=== PATIENT | male | born 1970 | race Caucasian/White ===

== ENCOUNTER → 2023-03-25 | Outpatient (CLI) | payer OTHER ==
[2023-03-25 21:17] LABS: BUN/Creat Ratio 24.75 Ratio (12.00-20.00); Blood Urea Nitrogen 19.8 mg/dL (9.0-27.0); Calcium 9.8 mg/dL (8.7-10.3); Chloride 104 mmol/L (96-109); Glucose 172 mg/dL (70-110); Potassium 4.6 mmol/L (3.5-5.5); Sodium 140 mmol/L (135-145)
[2023-03-25 21:32] LABS: Basophils # (A) 0.04 X 10*3/uL (0.00-0.10); Basophils % (A) 0.7 %; Eosinophils # (A) 0.26 X 10*3/uL (0.04-0.35); Eosinophils % (A) 4.6 %; HCT 44.5 % (39.6-50.0); HGB 14.7 d/dL (12.0-15.0); Lymphocytes % (A) 33.6 %; MCH 28.7 pg (27.0-32.0); MCV 86.9 FL (80.0-97.0); Mean Platelet Volume 11.4 FL (9.5-12.2); Monocytes # (A) 0.52 X 10*3/uL (0.20-1.00); Monocytes % (A) 9.2 %; NRBC Per 100 WBC 0 X 10*3/uL (0.00-0.01); Neutrophils # (A) 2.91 X 10*3/uL (1.80-7.70); Neutrophils % (A) 51.5 %; Platelet Count 178 X 10*3/uL (140-440); RBC 5.12 X 10*6/uL (4.40-5.60); RDW 12.4 % (11.5-14.5); WBC 5.65 X 10*3/uL (4.50-10.00)
[2023-03-25 22:47] LABS: Appearance,Urine Clear (Clear); Bilirubin,Urine Negative (Negative); Blood,Urine Negative (Negative); Color,Urine Yellow (Yellow); Ketones,Urine Negative (Negative); Nitrite,Urine Negative (Negative); PH, Urine 5.5; Specific Gravity,Urine 1.029 (1.001-1.030); Urobilinogen,Urine 0.2 E.U./DL
== END | disposition home or self-care (01) ==
LOC: LABPAT 14:19
PROVIDERS: ATTEND Urology
DX: Z01.812 Encounter for preprocedural laboratory examination (principal); N20.0 Calculus of kidney
CPT/HCPCS: 80048; 81003; 85025

== ENCOUNTER 2023-04-07 07:37 | Day surgery (SDC) | payer OTHER ==
--- NOTE | 2023-04-06 18:09 | P.GSHP ---
History of Present Illness H&P Date: 04/06/23 52 yo male with a history of stones. He has left flank pain with a 3-4 mm left renal stone. We discussed treatment options and indications for treatment. The stone cant be seen on a kub therefore he comes for a left ureteroscopy and laser lithotripsy. The risks and complications have been explained understood and accepted. He understands that he may not get relief of the pain with removal of the stone. - Constitutional Constitutional: Denies chills, Denies fever - EENT Eyes: denies blurred vision, denies pain Ears, nose, mouth and throat: Denies headache, Denies sore throat - Cardiovascular Cardiovascular: Denies chest pain, Denies shortness of breath - Respiratory Respiratory: Denies cough, Denies 7 - Gastrointestinal Gastrointestinal: Denies abdominal pain, Denies diarrhea, Denies nausea, Denies vomiting - Genitourinary (Female) Genitourinary: Denies dysuria, Denies hematuria - Genitourinary (Male) Genitourinary: Denies dysuria, Denies hematuria - Musculoskeletal Musculoskeletal: Denies myalgias - Integumentary Integumentary: Denies pruritus, Denies rash - Neurological Neurological: Denies numbness, Denies weakness - Psychiatric Psychiatric: Denies anxiety, Denies depression - Endocrine Endocrine: Denies fatigue, Denies weight change Past Medical History Past Medical History: COPD, Diabetes Mellitus, GERD/Reflux, Hyperlipidemia, Liver Disease Additional Past Medical History / Comment(s): CT scan showed nodules on lung, chronic bronchitis -light copd, fatty liver, kidney stones. rash to rt shoulder from work bag. general aches and pains History of Any Multi-Drug Resistant Organisms: None Reported Additional Past Surgical History / Comment(s): left scapula surgery. wisdom teeth. egd Past Anesthesia/Blood Transfusion Reactions: No Reported Reaction Additional Past Anesthesia/Blood Transfusion Reaction / Comment(s): no blood tranfusions Smoking Status: Former smoker - Past Family History Mother Family Medical History: GERD/Reflux Additional Family Medical History / Comment(s): cirrohsis of liver non alcohol. esophageal varices Medications and Allergies Home Medications Medication Instructions Recorded Confirmed Type Albuterol Sulfate [Ventolin HFA] 1 puff INHALATION Q4HR PRN 04/05/23 04/05/23 History Famotidine 40 mg PO DAILY 04/05/23 04/05/23 History Ibuprofen [Motrin] 800 mg PO Q8H PRN 04/05/23 04/05/23 History Magnesium Oxide [Magnesium] 500 mg PO DAILY 04/05/23 04/05/23 History Rosuvastatin Calcium 5 mg PO DAILY 04/05/23 04/05/23 History metFORMIN HCL 500 mg PO DAILY 04/05/23 04/05/23 History Allergies Allergy/AdvReac Type Severity Reaction Status Date / Time adhesive Allergy Rash/Hives Verified 04/05/23 08:35 Surgical - Exam - General well developed, well nourished, no distress - Eyes normal ocular movement, no icteric - ENT no hearing loss, no congestion - Neck no masses, trachea midline - Respiratory normal respiratory effort, clear to auscultation - Abdomen Abdomen: soft, non tender, no guarding, no rigid, no rebound - Integumentary no rash, no abnormal pigmentation - Neurologic no disoriented, no combative - Psychiatric oriented to time, oriented to person, oriented to place, speech is normal, memory intact Results - Imaging CT scan - abdomen: report reviewed, image reviewed CT scan - pelvis: report reviewed, image reviewed Assessment and Plan Assessment: Impression: left flank pain with a left renal stone. Multiple medical comorbidities. Plan: left ureterscopy with laser lithotripsy
[2023-04-07] MEDS ORDERED: HYDROmorphone 0.5 MG/0.5 ML SYRINGE IVP PRN (07:54)
[2023-04-07] MEDS ORDERED: LIDOCAINE 1% (10MG/ML) FOR IV START INTRADERMA PRN (07:54)
[2023-04-07] MEDS ORDERED: DEXAMETHASONE SOD PHOSPHATE 4 MG/ML 1 ML VIAL IV ONE (07:54)
[2023-04-07] MEDS ORDERED: LACTATED RINGERS 1,000 ML IV SCH (07:54)
[2023-04-07] MEDS ORDERED: ONDANSETRON 4 MG/2 ML VIAL IVP ONE (07:54)
[2023-04-07] MEDS ORDERED: droPERidol 5 MG/2 ML VIAL IVP ONE (07:54)
--- NOTE | 2023-04-07 08:01 | XR ---
EXAMINATION TYPE: XR KUB DATE OF EXAM: 04/07/2023 COMPARISON: NONE HISTORY: Left ureteral stone TECHNIQUE: Single supine KUB image of the abdomen is obtained FINDINGS: Small bowel demonstrates no evidence for dilatation or air fluid levels. Gas and fecal material is seen in non-distended colon. No definitive renal or ureteral calculi identified. The lung bases are clear. The osseous structures are intact. Degenerative changes of the lumbar spine. IMPRESSION: 1. Overall nonobstructive bowel gas pattern. 2. No definitive renal or ureteral calculi identified.
[2023-04-07 08:14] LABS: Glucose,Whole Blood 288 mg/dL (70-110)
[2023-04-07] MEDS ORDERED: INSULIN ASPART (NovoLOG) 100 UNIT/ML VIAL SQ ONE (08:55)
[2023-04-07] MEDS ORDERED: MIDAZOLAM 2 MG/2 ML VIAL ONE (09:35)
[2023-04-07] MEDS ORDERED: fentaNYL (PF) 50 MCG/ML 2 ML AMP ONE (09:35)
[2023-04-07] MEDS ORDERED: SUCCINYLCHOLINE CHLORIDE 200 MG/10 ML VIAL IV ONE (09:35)
[2023-04-07] MEDS ORDERED: PROPOFOL 10 MG/ML 20 ML VIAL IV ONE (09:35)
[2023-04-07] MEDS ORDERED: LIDOCAINE 2% INJ 20 MG/ML (2 ML VIAL) ONE (09:35)
--- NOTE | 2023-04-07 10:27 | P.OP ---
Date of Procedure: 04/07/23 Preoperative Diagnosis: Left renal stone with renal colic Postoperative Diagnosis: Same Procedure(s) Performed: Cystoscopy with left ureteroscopy with laser lithotripsy Anesthesia: JENNIFER Surgeon: Ulises Rizzo Estimated Blood Loss (ml): 0 Pathology: other (Stone) Condition: stable Disposition: PACU Indications for Procedure: 52. He has persistent left flank pain. He has a 4 mm left middle pole stone. Been given treatment options. He comes for ureteroscopy and laser lithotripsy Description of Procedure: Patient brought to the operating suite. He is given a general aesthetic. He's placed lithotomy position with sterile prep and drape. The stone is not seen on fluoroscopy nor KUB. For this reason we'll do ureteroscopy Cystoscopy oblique lens and 21-Icelandic sheath identifies a normal anterior urethra and out of acting prostate. The bladder wall is unremarkable. The left ureteral orifice is intubated with an 035 wire passed up into the kidney. Over the wires passed a [id number] reentry ureteral sheath. The inner sheath is removed. Possible flexible ureteroscope up into the kidney and inspect each calyx. In the mid to lower pole calyx the stone was seen. With the 275 laser probe the stone was broken into tiny dustlike fragments. A 1 mm fragment is grasped and removed for pathology. The ureteroscope was removed. The bladder strain. The patient is awake and returned recovery room good condition. He'll be discharged home upon recovery and found the office in one week. We'll see if this relieves some of his discomfort..
[2023-04-07 10:30] LABS: Glucose,Whole Blood 232 mg/dL (70-110)
[2023-04-07 10:32] VITALS: TEMP 97.8
--- NOTE | 2023-04-07 10:59 | FL ---
Intraoperative/procedural fluoroscopic services were provided for cystoscopy with litho by Dr. Rizzo. Total fluoroscopy time is 8.8 seconds with a total of 3 submitted images to PACS. Total DAP 1.5344 G ycm2. Please see the operative note for further details.
[2023-04-07 11:11] VITALS: RESP 18
[2023-04-07] MEDS ORDERED: KETOROLAC 15 MG/ML 1 ML VIAL IVP ONE ×2 (11:35)
[2023-04-07 11:36] VITALS: BP 154/93; PULSE 68
[2023-04-07] MEDS ORDERED: KETOROLAC 15 MG/ML 1 ML VIAL ONE (11:37)
== END 2023-04-07 12:13 | disposition home or self-care (01) ==
LOC: OR 07:37
PROVIDERS: ATTEND Urology
DX: N20.0 Calculus of kidney (principal); J44.9 Chronic obstructive pulmonary disease, unspecified; E11.9 Type 2 diabetes mellitus without complications; K21.9 Gastro-esophageal reflux disease without esophagitis; E78.5 Hyperlipidemia, unspecified; Z87.442 Personal history of urinary calculi; Z87.891 Personal history of nicotine dependence; Z79.51 Long term (current) use of inhaled steroids; Z79.84 Long term (current) use of oral hypoglycemic drugs; Z79.899 Other long term (current) drug therapy
CPT/HCPCS: 52353; 82365; 74018; J2250; J0330; J0690; J2405; J3010; J1885; J2704; J2001